=== PATIENT | female | born 1960 | race Caucasian/White ===

== ENCOUNTER 2021-02-17 06:26 | Emergency (ER) | payer BC ==
[2021-02-17 06:40] VITALS: BP 128/73
[2021-02-17] MEDS ORDERED: methocarbamoL 500 MG TABLET PO STA (06:50)
[2021-02-17] MEDS ORDERED: ACETAMINOPHEN 325 MG TABLET PO STA (06:50)
--- NOTE | 2021-02-17 06:54 | ED Physician Documentation ---
History of Present Illness - Stated complaint Stated Complaint: BACK PX - Chief complaint Chief Complaint: Back Pain - History obtained from History obtained from: Patient, Family () - Additonal information Additional information: 60-year-old woman with past medical history of chronic back pain presents with right lower back and buttock pain gradual in onset yesterday upon waking, worse after riding in the car during the day yesterday and 9 out of 10 when she went to bed. She was unable to sleep well last night and states that it is 8 out of 10 this morning. Localized to the right lower back and buttock area, radiating forward to the right hip, without any shooting pains. Pain is throbbing, constant, severe. denies fevers, urinary sx, fnd. Review of Systems Constitutional: reports: Myalgias. denies: Fever Musculoskeletal: reports: Back pain Neurologic: denies: Focal weakness, Numbness PD PAST MEDICAL HISTORY - Past Medical History Past Medical History: Yes Cardiovascular: Hypertension, High cholesterol Musculoskeletal: Chronic back pain - Past Surgical History Past Surgical History: Yes Ortho: Other - Present Medications Home Medications: Ambulatory Orders Medication Instructions Recorded Confirmed Atorvastatin [Lipitor] 10 mg PO DAILY 02/17/21 02/17/21 Lisinopril [Zestril] 20 mg PO DAILY 02/17/21 02/17/21 - Allergies Allergies/Adverse Reactions: Allergies Allergy/AdvReac Type Severity Reaction Status Date / Time No Known Drug Allergies Allergy Verified 02/17/21 06:40 - Social History Does the pt smoke?: Yes Smoking Status: Current every day smoker Does the pt drink ETOH?: Yes ETOH Use: Wine, Liquor Does the pt have substance abuse?: No - Immunizations Immunizations are current?: Yes - POLST Patient has POLST: No PD ED PE NORMAL - Vitals Vital signs reviewed: Yes - General General: Alert and oriented X 3, No acute distress, Well developed/nourished - HEENT HEENT: Atraumatic, PERRL, EOMI - Neck Neck: Supple, no meningeal sign - Back Back: No CVA TTP, No spinal TTP, Other (R lower back and R buttock ttp. nontender with rom of hip, however there is discomfort in the buttock. negative straight leg raise) - Derm Derm: Normal color, Warm and dry - Extremities Extremities: No deformity, Other (2+ BL dp pulses) - Neuro Neuro: Alert and oriented X 3, No motor deficit, No sensory deficit Results - Vitals Vitals: Vital Signs - 24 hr 02/17/21 06:30 Temperature 36.1 C L Heart Rate 93 Respiratory 18 Rate Blood Pressure 128/73 O2 Saturation 97 Oxygen O2 Source Room air Procedures - General procedure General procedure: Trigger point injection performed to the right buttock. Cleaned with Betadine. 1% lidocaine administered to the right buttock at point of maximal spasm. EBL 0. Patient tolerated well. PD MEDICAL DECISION MAKING - ED course ED course: 60-year-old woman presented with muscle spasm. Trigger point injection performed and medications administered. Education given about symptomatic treatment at home. Patient will follow up with physical therapy with her primary doctor.Return precautions given Departure - Departure Disposition: 01 Home, Self Care Clinical Impression: Back spasm Condition: Good Instructions: ED Low Back Pain Injury Comments: You were seen in the emergency department for back spasm. You were given Toradol, Robaxin, and a trigger point injection. Ensure that you do warm compresses alternating with ice for 20 minutes every hour. Apply icy hot as needed. Gentle stretching exercises in the shower may help when your muscles are loosened up. Avoid overstretching as this can worsen the pain. Return to the emergency department if you experience any new or worsening symptoms or have other concerns. Follow up for PT tomorrow. Follow up with your primary doctor.
== END 2021-02-17 07:13 | disposition home or self-care (01) ==
LOC: ED 06:26
DX: M62.830 Muscle spasm of back (principal); M54.5 Low back pain; G89.29 Other chronic pain; M25.551 Pain in right hip; I10 Essential (primary) hypertension; F17.200 Nicotine dependence, unspecified, uncomplicated
CPT/HCPCS: 20552; 99282; 99283; A9270